=== PATIENT | male | born 1995 | race Caucasian/White ===

== ENCOUNTER 2018-08-14 18:12 | Emergency (ER) | payer BC ==
[2018-08-14] MEDS ORDERED: ACETAMINOPHEN 325 MG TABLET PO ONE (18:43)
--- NOTE | 2018-08-14 19:22 | RADIOLOGY REPORT (SQ) ---
EXAM DESCRIPTION: HAND LEFT 3 VIEWS COMPLETED DATE/TIME: 08/14/2018 6:36 pm REASON FOR STUDY: hand swelling and pain slight deformity COMPARISON: None. EXAM PARAMETERS: NUMBER OF VIEWS: Three views. TECHNIQUE: AP, lateral and oblique radiographic images acquired of the left hand. LIMITATIONS: None. FINDINGS: MINERALIZATION: Normal. BONES: Comminuted fractures of the 2nd and 3rd metacarpals. No significant displacement. JOINTS: No effusions. SOFT TISSUES: Soft tissue swelling. OTHER: No other significant finding. IMPRESSION: Fractures of the 2nd and 3rd metacarpals. TECHNICAL DOCUMENTATION: JOB ID: [id number] [facility]- All Rights Reserved Reading location - IP/workstation name: [email or web address]
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
[2018-08-14 22:24] VITALS: BP 150/92
== END 2018-08-14 22:24 | disposition home or self-care (01) ==
LOC: ER 18:12
PROC: 2W3DX1Z Immobilization of Left Lower Arm using Splint (ICD-10-PCS; principal; 2018-08-14)
DX: S62.353A Nondisplaced fracture of shaft of third metacarpal bone, left hand, initial encounter for closed fracture (principal); M79.89 Other specified soft tissue disorders; M79.642 Pain in left hand; V28.4XXA Motorcycle driver injured in noncollision transport accident in traffic accident, initial encounter
CPT/HCPCS: 99283